=== PATIENT | male | born 1950 | race Caucasian/White ===

== ENCOUNTER → 2019-05-03 | Emergency (ER) | payer OTHER, MEDICAID ==
[~2019-05-03] VITALS: Ht 182.9 cm; Wt 226.8 kg
[~2019-05-03] MED LIST: FUROSEMIDE 20 MG/2 ML VIAL IV ONE; LIDOCAINE 2% JELLY 11ml (GLYDO) ONE; LIDOCAINE HCL 2% TOP JELLY 5ML TOP ONE; SODIUM CHLORIDE 0.9% 1,000 ML IV ONE
[2019-05-03 08:31] LABS: Basophils # (auto) 0 10 ^3/uL (0-0.2); Basophils % (auto) 0.2 % (0.0-2.0); Eosinophils # (auto) 0 10 ^3/uL (0-0.8); Eosinophils % (auto) 0.1 % (0.0-7.0); Lymphocytes # (auto) 0.5 10 ^3/uL (0.4-5.4); Mean Corpuscular Hgb Conc. 32.9 g/dL (32.0-36.0); Monocytes # (auto) 0.5 10 ^3/uL (0-1.3); Neutrophils % (auto) 80.7 % (37.0-80.0)
[2019-05-03 08:32] LABS: Hematocrit 24.2 % (41.0-53.0); Lymphocytes % (auto) 10.3 % (10.0-50.0); Mean Corpuscular Hemoglobin 28.2 pg (28.0-32.0); Mean Corpuscular Volume 85.6 fL (80.0-100.0); Monocytes % (auto) 8.7 % (0.0-12.0); Neutrophils # (auto) 4.3 10 ^3/uL (1.6-8.6); Platelet Count (auto) 178 10^3/uL (140-450); Red Blood Cells 2.82 10^6/uL (4.5-5.90); Red Cell Distribution Width 18.4 % (11.8-14.3); White Blood Cell 5.3 10^3/uL (4.4-10.8)
[2019-05-03 08:43] LABS: Albumin 2.4 g/dL (3.4-5.0); Calcium 8.1 mg/dL (8.5-10.1); Potassium 4.5 mmol/L (3.5-5.1)
[2019-05-03 08:48] LABS: BUN/Creatinine Ratio 23.7; Bilirubin, Total 1.2 mg/dL (0.2-1.0); Total Protein 7.3 g/dL (6.4-8.2)
[2019-05-03 08:59] LABS: INR 1.18 (0.9-1.15); Partial Thromboplastin Time 27.7 sec (23.64-32.05)
--- NOTE | 2019-05-03 11:19 | NUR ---
Received Social Service Consult as family thought they might need more help at home or information on board and cares. Gave booklets to Pt's Nurse.
[2019-05-03 11:48] LABS: Urine Bacteria NONE SEEN /hpf (None Seen); Urine Blood 1+ /uL (Negative); Urine Mucus FEW (None Seen); Urine Specific Gravity 1.021 (1.001-1.035); Urine WBC 2 /hpf (0 - 3)
[2019-05-03 13:17] VITALS: BP 116/76
== END | disposition home or self-care (01) ==
LOC: EDUNIT# 03:39 → EDBD 03:55 → ER 03:57
DX: I89.0 Lymphedema, not elsewhere classified (principal); E44.0 Moderate protein-calorie malnutrition; I48.91 Unspecified atrial fibrillation
CPT/HCPCS: 36415; 71045; 80053; 81001; 83880; 84484; 85025; 85610; 85730; 93005; 93970; 96374; 99285; J1940; J7030